=== PATIENT | female | born 1985 | race Caucasian/White ===

== ENCOUNTER 2016-12-17 14:59 | Inpatient (IN) | payer MEDICAID ==
[~2016-12-17] VITALS: Ht 147.3 cm; Wt 59.0 kg
[2016-12-17 15:19] VITALS: BP 127/74; PULSE 75; RESP 18
[2016-12-17 15:20] VITALS: Ht 147.3 cm; Wt 59.0 kg
[2016-12-17] MEDS ORDERED: PREN-93 PO (15:22)
[2016-12-17] MEDS ORDERED: FERR325T5 PO (15:33)
[2016-12-17] MEDS ORDERED: CALC600T5 PO (15:33)
[2016-12-17] MEDS ORDERED: LACTATED RINGER'S 1,000 ML IV ONE (16:30)
--- NOTE | 2016-12-17 19:18 | NSTRPT ---
NST Information Datetime Report Generated by CPN: 12/17/2016 19:18 Datetime: 12/17/2016 13:20 NST Information EGA: 37.5 Test Number: 6 Time on Monitor: 12/17/2016 13:46 Time off Monitor: 12/17/2016 14:40 NST Duration (Min): 54 Reason for NST: Diabetes Mellitus Reason for NST Other: A1DM Test and Monitor Explained: Monitor Explained; Test Explained; Verbalized Understanding Pulse: 78 Resp: 18 SBP: 96 DBP: 55 Test Evaluation Contraction Frequency: 3-7, MILD FHR Baseline : 150 Variability: Moderate 6-25bpm Accelerations: 15X15 Decelerations: None FHR Category: Category I NST Results: Reactive Comments: pt to U/S, EBER-14.9 CM, TRANSVERSE, Report given to Dr. Forrest. New orderes received. Pt to Ob-Trg shalom. Explained to Pt plan of care. Pt states understanding. No further questions asked at this time. Follow up NST appoitment given. Electronically Signed By E-Signature: with User ID: [id number], Addendum/Amendment: FHT baseline poorly established. Patient to the hospital for malpresentation an d contractions, will continue monitoring there Datetime: 12/14/2016 13:24 NST Information EGA: 37.2 NST Duration (Min): 29 Datetime: 12/07/2016 14:25 NST Information EGA: 36.2 NST Duration (Min): 36 Datetime: 12/03/2016 13:04 NST Information EGA: 35.5 NST Duration (Min): 46 Datetime: 11/26/2016 09:00 NST Information EGA: 34.5 NST Duration (Min): 36 Datetime: 11/23/2016 14:18 NST Information EGA: 34.2 Datetime: 11/23/2016 14:12 NST Duration (Min): 39
[2016-12-17] MEDS ORDERED: OXYTOCIN 30 UNITS/LR 500 ML IV SCH ×2 (19:30→20:00)
[2016-12-17] MEDS ORDERED: METHYLERGONOVINE 0.2 MG INJ IM PRN (19:30)
[2016-12-17] MEDS ORDERED: CARBOPROST 250 MCG INJ IM PRN (19:30)
[2016-12-17] MEDS ORDERED: MISOPROSTOL 200 MCG TAB PR PRN (19:30)
[2016-12-17] MEDS ORDERED: OXYTOCIN 30 UNITS/LR 500 ML IV PRN ×2 (19:30→20:00)
[2016-12-17] MEDS ORDERED: CLINDAMYCIN 900 MG/D5W (PMX) 50 ML IV SCH (19:30)
[2016-12-17 19:36] LABS: ADD SCAN DIFF NO
[2016-12-17 19:38] LABS: BASOPHILS % 0.1 % (0.0-2.0); HEMATOCRIT 39.5 % (37.0-47.0); HEMOGLOBIN 13.6 g/dl (12.0-16.0); LYMPHOCYTES # 1.4 10^3/ul (0.8-2.9); LYMPHOCYTES % 15.8 % (15.0-51.0); MEAN CORPUSCULAR HGB CONC 34.4 g/dl (32.0-37.0); MEAN CORPUSCULAR VOLUME 95.9 fl (82.0-101.0); MEAN PLATELET VOLUME 11.4 fl (7.4-10.4); MONOCYTE # 0.4 10^3/ul (0.3-0.9); MONOCYTES % 4.8 % (0.0-11.0); NEUTROPHIL # 7.1 10^3/ul (1.6-7.5); NEUTROPHILS % 78.4 % (39.0-77.0); PLATELET COUNT 183 10^3/UL (140-415); RED BLOOD COUNT 4.12 10^6/ul (4.20-5.40); RED CELL DISTRIBUTION WIDTH 13.5 % (11.5-14.5)
--- NOTE | 2016-12-17 19:44 | TRIAGE ---
OB Triage Datetime Report Generated by CPN: 12/17/2016 19:43 Datetime: 12/17/2016 19:32 Stage of : Labor Datetime: 12/17/2016 18:30 Vaginal Exam Dilatation (cms): 0.0 Effacement (%): 0 Station: -3 Exam By: DR. RABIA Datetime: 12/17/2016 16:19 Labor Evaluation Frequency: 2-8 Monitor Mode: External Duration (sec)2399: 50-120 Pattern: Normal: <= 5 Contractions in 10 Minutes Resting Tone [place]: Relaxed Heart Rate FHR Baseline Rate: 150 Monitor Mode: External US Variability: Moderate 6-25 bpm Accelerations: 15X15 Decelerations: None Category: Category I Pain Assessment Pain Presence: None/Denies Datetime: 12/17/2016 15:26 Assessment Type: Admission Assessment Maternal Assessment Level of Consciousness: Fully Conscious DTR's/Clonus: DTRs 2+; No Clonus Headache: Denies Blurred Vision: No Respiratory Effort: Unlabored; Regular Rhythm; Equal Expansion Breath Sounds, Left: Clear and Equal Breath Sounds, Right: Clear and Equal Nausea/Vomiting: Denies RUQ Epigastric Pain: Denies Lower Extremities Edema: None Degree: None Upper Extremities Edema: None Degree: None Facial Edema: None Fall Risk Assessment History of Falling: (0) No Secondary Diagnosis: (0) No Ambulatory Aid: (0) Bedrest/Nurse Assist IV Therapy: (0) No Gait: (0) Normal/Bedrest/Immobile Mental Status: (0) Oriented to Own Ability Fall Score: 0 Fall Risk Score Definition: No Risk: No action required Datetime: 12/17/2016 15:24 Time of Arrival: 12/17/2016 15:00 EGA: 37.5 Arrived By: Ambulatory Arrived From: Other Unit in Hospital Chief Complaint: PT. CAME FROM NST C/O UC'S AND AIDM Movement: Present Contractions: Irregular Rupture of Membranes: Denies Vaginal Bleeding: None Vaginal Discharge: Denies Recent Sexual Intercouse: Denies Abdominal Trauma: Not Applicable Patient Complaints: Contractions Time Provider Notified: 12/17/2016 16:07 Provider Notified: DR CAMARILLO Initial Plan: TOCO/ UC, IV HYDRATION (Annotations: Data stored by N on behalf of user) Datetime: 12/17/2016 15:08 Pain Assessment Pain Presence: None/Denies Datetime: 12/17/2016 15:07 Stage of : OB Triage Pain Assessment Pain Presence: None/Denies
[2016-12-17] MEDS ORDERED: LACTATED RINGER'S 1,000 ML IV SCH ×2 (19:46→19:50)
[2016-12-17 20:01] LABS: INR 0.91; PROTIME 12.3 Sec (12.2-14.2)
[2016-12-17 20:02] LABS: PARTIAL THROMBOPLASTIN TIME 22.1 Sec (25.0-35.0)
[2016-12-17] MEDS ORDERED: morphine SULFATE/PF (10 MG/10 ML) INJ ONE (20:06)
[2016-12-17] MEDS ORDERED: PHENYLephrine (100 MCG/ML) 5ML SYG ONE (20:06)
[2016-12-17] MEDS ORDERED: FENTAnyl 50 MCG/ML VIAL ONE (20:06)
[2016-12-17 20:38] LABS: BARBITURATES Negative (NEGATIVE); BENZODIAZEPINES Negative (NEGATIVE); CANNABINOIDS Negative (NEGATIVE); COCAINE Negative (NEGATIVE); OPIATES Negative (NEGATIVE)
[2016-12-17] MEDS ORDERED: KETAMINE 500 MG INJ ONE (20:50)
[2016-12-17] MEDS ORDERED: GENTAMICIN 80 MG in SOD CHLORIDE 0.9% 100 ML IVPB SCH (21:00)
[2016-12-17] MEDS ORDERED: ONDANSETRON 4 MG INJ ONE (21:04)
[2016-12-17] MEDS ORDERED: MIDAZOLAM 1 MG/ML 2 ML INJ ONE (21:04)
[2016-12-17] MEDS ORDERED: OXYTOCIN 30 UNITS/LR 500 ML IV ONE (21:29)
[2016-12-17] MEDS ORDERED: GENTAMICIN IN NACL, ISO-OSM 50 ML IVPB SCH (21:30)
[2016-12-17] MEDS ORDERED: GENTAMICIN 80 MG/NS (PMX) 50 ML IVPB SCH (21:30)
--- NOTE | 2016-12-17 21:51 | HP ---
Date/Time of Note Date/Time of Note DATE: 12/17/16 TIME: 21:47 OB - History Hx of Present Free Text/Dictation sent by NST ubit for persistent uterune contractions at37.5 weeks with previous C/S X 1 Chief Complaint: uterine contractions Last Menstrual Period: Mar 28, 2016 Estimated Due Date: Jan 02, 2017 : 3 Para: 1 Spontaneous : 1 Care: Good Care Ultrasounds: Normal mid trimester US Obstetrical Complications: Gestational Diabetes Medical Complications: Other (previous C/S X 1 for abnormal presentation ) Past Family/Social History * Past Medical, Surgical, Family and Obstetric Histories reviewed from chart. Blood Type: O+ Rubella: immune RPR/VDRL: Negative GBS Status: Negative HBsAG: Negative OB Admission Exam Vital Signs Vital Signs Vital Signs Date Time Temp Pulse Resp B/P Pulse Ox O2 Delivery O2 Flow Rate FiO2 12/17/16 15:19 97.5 75 18 127/74 Room Air Physical Exam HEENT: WNL Heart: Rhythm Normal Lungs: Clear, Equal Abdomen: WNL Extremities: Normal Reflexes: Normal Cervical Dilatation: None Effacement: 0% Station: Ballotable Membranes: Intact Heart Rate: 130's Accelerations: Accelerations Present Decelerations: No Decelerations Varibility: Moderate Contractions on Admission: < 5 Minutes Apart Date/Time Contractions Began: 12/17/16 1000 AM Frequency of Contractions: q 3-5 Duration: >60 seconds Intensity: Mild Last 72 hours Lab Results CBC & BMP 12/17/16 19:30 OB Assessment/Plan Other Assessment: 37.5weeks gestation previous C/S X 1 labor pains transverse lie Other plan: repeat C/S ETELVINA LECHUGA MD Dec 17, 2016 21:51
--- NOTE | 2016-12-17 21:56 | OPR ---
Operative Report Planned Procedure Procedure date Dec 17, 2016 Procedure(s) repeat C/S Performed by: ETELVINA LECHUGA MD Assisting provider: DAROI YBARRA MD Anesthesiologist: ERNESTO SHAFFER DO Pre-procedure diagnosis 37.5 weeks gestation persistent uterine contractions transverse lie previous C/S X 1 Anesthesia Type: spinal Procedure Description Under satisfactory anaesthesia a Pfannenstiel incision was made two fingerbreadth above and parallel to the symphysis of pubis around the previous scar and previous scar was removed Incision was extended laterally to the border of the Recti muscles on either sides. Incision was carried down with sharp and blunt dissection until fascia was reached. Anterior Recti muscle fascia was incised in mid portion and incision extended laterally to the border of skin incision. Fascia was mobilized from muscle superiorly and Recti muscles were from midline using sharp and blunt dissection. Peritoneum was visualized; Avoiding bowel and bladder it was incised . Incision was extended superiorly and inferiorly. Bladder blade was placed. Posterior peritoneum covering the lower segment of the uterus and lower segment of the uterus were incised.Low transverse uterine incision was made on lower segment of the uterus. Incision extended laterally to the border of Round Lig. on either sides and after versing the vertex toward uterine incision, baby was delivered from OT. position . Amniotic fluid appeared clear. Cord blood was obtained and cord had 3 vessels . previous midline uterine incision noticed. Placenta was delivered spontaneously and appeared intact and complete. Intrauterine cavity was rubbed with a laparotomy sponge. Uterine incision was closed in 2 layers using running stitches of No1 Monocryl. Hemostasis appeared secure. Ovaries and Fallopian tubes were within normal limits. Announcing needle, lap sponge and instrument count to be correct abdomen was closed in layers as follows: Peritoneum and Recti muscles with running stitches of 20 Vicryl. Fascia with running stitch of No 1 PDS. Subcutaneous tissue with running stitches of 20 Chromic and skin was closed using elvira. Patient tolerated the procedure well and was transferred to [facility] in good condition. Post-Procedure Post-procedure diagnosis S/P repeat C/S Findings: Live Baby in back down transverse lie Specimen removed: No Complications: None Pt Condition post procedure: stable Disposition: PACU Physician Certification I, the undersigned physician, hereby certify that I have discussed the procedure described in this consent form with this patient (or the patient's legal desk representative), including: * The risk and benefits of the procedure; * Any adverse reactions that may reasonably be expected to occur; * Any alternative efficacious methods of treatment which may be medically viable ; * The potential problems that may occur during recuperation; * Potential for blood transfusion and associated risks/benefits; and * Any research or economic interest I may have regarding this treatment. I further certify that the patient/legally responsible person was encouraged to ask question and that all questions were answered. ETELVINA LECHUGA MD Dec 17, 2016 21:56
[2016-12-17] MEDS ORDERED: HYDROmorphONE 1 MG/ML SYG IV PRN ×2 (22:00)
[2016-12-17] MEDS ORDERED: PROCHLORPERAZINE 10 MG INJ IV PRN (22:00)
[2016-12-17] MEDS ORDERED: ZOLPIDEM 5 MG TAB PO PRN (22:00)
[2016-12-17] MEDS ORDERED: KETOROLAC 30 MG INJ IV PRN (22:00)
[2016-12-17] MEDS ORDERED: NALOXONE (0.4 MG/ML) INJ IV PRN (22:00)
[2016-12-17] MEDS ORDERED: ONDANSETRON 4 MG INJ IV PRN (22:00)
[2016-12-17] MEDS ORDERED: DIPHENHYDRAMINE 50 MG INJ IV PRN (22:00)
[2016-12-17] MEDS: OXYTOCIN 30 UNITS/LR 500 ML IV SCH (22:46)
[2016-12-18] VITALS (8 sets, daily range): BP systolic 100–120; BP diastolic 59–72; PULSE 70–103; RESP 18–21
[2016-12-18] MEDS: OXYTOCIN 30 UNITS/LR 500 ML IV SCH (00:08)
[2016-12-18] MEDS ORDERED: CARBOPROST 250 MCG INJ IM PRN (01:00)
[2016-12-18] MEDS ORDERED: LANOLIN 7 GM TUBE TOP PRN (01:00)
[2016-12-18] MEDS ORDERED: METHYLERGONOVINE 0.2 MG INJ IM PRN (01:00)
[2016-12-18] MEDS ORDERED: MISOPROSTOL 200 MCG TAB PR PRN (01:00)
[2016-12-18] MEDS ORDERED: NA PHOSPHATE/BIPHOS 133 ML ENEMA PR PRN (01:00)
[2016-12-18] MEDS ORDERED: OXYTOCIN 30 UNITS/LR 500 ML IV PRN (01:00)
[2016-12-18] MEDS: GENTAMICIN 80 MG/NS (PMX) 50 ML IVPB SCH ×3 (01:25→17:32)
[2016-12-18] MEDS: CLINDAMYCIN 300 MG CAP PO SCH ×4 (01:37→18:00)
[2016-12-18] MEDS: LACTATED RINGER'S 1,000 ML IV SCH ×3 (04:13→16:39)
[2016-12-18] MEDS: CLINDAMYCIN 900 MG/D5W (PMX) 50 ML IVPB SCH ×3 (05:43→22:36)
[2016-12-18] MEDS: ACCU-CHEK XX SCH ×5 (06:00→21:14)
[2016-12-18 07:56] LABS: ADD SCAN DIFF NO
[2016-12-18 08:01] LABS: BASOPHILS % 0.2 % (0.0-2.0); EOSINOPHILS % 0.1 % (0.0-7.0); HEMATOCRIT 31.8 % (37.0-47.0); HEMOGLOBIN 11.1 g/dl (12.0-16.0); LYMPHOCYTES # 1.5 10^3/ul (0.8-2.9); LYMPHOCYTES % 11.9 % (15.0-51.0); MEAN CORPUSCULAR HEMOGLOBIN 33.2 pg (29.0-33.0); MEAN CORPUSCULAR HGB CONC 34.9 g/dl (32.0-37.0); MEAN CORPUSCULAR VOLUME 95.2 fl (82.0-101.0); MEAN PLATELET VOLUME 11.9 fl (7.4-10.4); MONOCYTE # 0.6 10^3/ul (0.3-0.9); MONOCYTES % 4.4 % (0.0-11.0); NEUTROPHIL # 10.7 10^3/ul (1.6-7.5); NEUTROPHILS % 82.9 % (39.0-77.0); PLATELET COUNT 160 10^3/UL (140-415); RED BLOOD COUNT 3.34 10^6/ul (4.20-5.40); RED CELL DISTRIBUTION WIDTH 13.2 % (11.5-14.5); WHITE BLOOD COUNT 12.9 10^3/ul (4.8-10.8)
[2016-12-18] MEDS ORDERED: BISACODYL 10 MG SUPP PR ONE (09:00)
[2016-12-18] MEDS: SENNA/DOCUSATE NA (8.6MG/50MG) TAB PO SCH ×2 (09:50→21:14)
--- NOTE | 2016-12-18 12:41 | PN ---
Date/Time of Note Date/Time of Note DATE: 12/18/16 TIME: 12:38 Assessment/Plan VTE Prophylaxis VTE Prophylaxis Intervention: ambulation Lines/Catheters IV Catheter Type (from Nrsg): Peripheral IV Assessment/Plan Assessment/Plan POD # 1 S/P C/S will advance diet and ambulate Monitor BS Subjective 24 Hr Interval Summary NO BM passing flatus Constitutional: BM, ambulates, flatus, improved, no complaints, urine output Pain Control: well controlled Exam/Review of Systems Vital Signs Vitals Vital Signs Date Time Temp Pulse Resp B/P Pulse Ox O2 Delivery O2 Flow Rate FiO2 12/18/16 08:26 96 21 12/18/16 08:00 98.4 80 18 110/66 Room Air Intake and Output 12/17/16 12/17/16 12/18/16 15:00 23:00 07:00 Intake Total 1000 ml 1650 ml Output Total 900 ml 1250 ml Balance 100 ml 400 ml Exam Free Text/Dictation abdomen: soft BS + Incision: covered Constitutional: alert, oriented, well developed Psych: nl mood/affect, no complaints Head: atraumatic, normocephalic Eyes: EOMI, icteric, nl conjunctiva, nl lids, nl sclera ENMT: mucosa pink and moist, nl external ears & nose, nl lips & teeth, nl nasal mucosa & septum Neck: non-tender, supple Respiratory: clear to auscultation, normal air movement Cardiovascular: nl pulses, regular rate and rhythm Gastrointestinal: nl liver, spleen, non-tender, soft Drains none Musculoskeletal: nl extremities to inspection, nl gait and stance Extremities: normal pulses Neurological: SEATER GRINDER II-XII intact, nl mental status, nl speech, nl strength Skin: nl turgor, rash or lesions Lymph: nl lymph nodes Results Result Diagram: 12/18/16 0640 12/17/161929 ETELVINA LECHUGA MD Dec 18, 2016 12:40
[2016-12-18] MEDS ORDERED: OXYCODONE/ACETAMINOPHEN (5/325) TAB PO PRN (22:00)
[2016-12-18] MEDS ORDERED: ACETAMINOPHEN/CODEINE #3 TAB PO PRN (22:00)
[2016-12-18] MEDS: IBUPROFEN 800 MG TAB PO SCH (22:00)
[2016-12-18] MEDS ORDERED: BISACODYL 10 MG SUPP PR SCH (23:00)
[2016-12-19] MEDS: LACTATED RINGER'S 1,000 ML IV SCH ×2 (01:23→08:39)
[2016-12-19] MEDS: GENTAMICIN 80 MG/NS (PMX) 50 ML IVPB SCH (01:24)
[2016-12-19] MEDS: IBUPROFEN 800 MG TAB PO SCH ×4 (01:46→21:56)
[2016-12-19 04:00] VITALS: BP 109/61; PULSE 75; RESP 18
[2016-12-19] MEDS: CLINDAMYCIN 900 MG/D5W (PMX) 50 ML IVPB SCH (05:33)
[2016-12-19] MEDS: ACCU-CHEK XX SCH ×3 (07:30→13:50)
[2016-12-19 08:09] LABS: ADD SCAN DIFF NO
[2016-12-19 08:14] LABS: BASOPHILS % 0.2 % (0.0-2.0); HEMATOCRIT 34.7 % (37.0-47.0); HEMOGLOBIN 11.8 g/dl (12.0-16.0); LYMPHOCYTES # 1.3 10^3/ul (0.8-2.9); MEAN CORPUSCULAR HEMOGLOBIN 32.8 pg (29.0-33.0); MEAN CORPUSCULAR VOLUME 96.4 fl (82.0-101.0); MEAN PLATELET VOLUME 11.6 fl (7.4-10.4); MONOCYTE # 0.6 10^3/ul (0.3-0.9); MONOCYTES % 4.6 % (0.0-11.0); NEUTROPHIL # 11.9 10^3/ul (1.6-7.5); NEUTROPHILS % 85.6 % (39.0-77.0); PLATELET COUNT 178 10^3/UL (140-415); RED CELL DISTRIBUTION WIDTH 13.7 % (11.5-14.5); WHITE BLOOD COUNT 13.9 10^3/ul (4.8-10.8)
[2016-12-19 08:15] VITALS: BP 115/75; PULSE 81; RESP 19
[2016-12-19] MEDS: SENNA/DOCUSATE NA (8.6MG/50MG) TAB PO SCH ×2 (09:00→21:56)
[2016-12-19] MEDS: CLINDAMYCIN 300 MG CAP PO SCH ×2 (12:56→18:33)
[2016-12-19 15:41] VITALS: BP 111/73; PULSE 81; RESP 19
--- NOTE | 2016-12-19 16:03 | DS ---
Date/Time of Note Date/Time of Note DATE: 12/19/16 TIME: 16:02 Obstetrical Discharge Record Final Diagnosis Final Diagnosis: Term delivered Other Final Diagnosis S/P repeat C/S Section Section: Repeat Condition on Discharge Physical Assessment Last Vitals: see nurses notes Voiding: Yes Bowel Movement: Yes Breast: Soft, non-tender, Filling Fundus: Firm Abdomen and Incision: soft bs + Episiotomy: NA Calf Tenderness: No Patient Condition: Good ETELVINA LECHUGA MD Dec 19, 2016 16:03
--- NOTE | 2016-12-19 16:05 | DS ---
Date/Time of Note Date/Time of Note home next day DATE: 12/19/16 TIME: 16:03 Discharge Summary Admission/Discharge Info Admit Date/Time Dec 17, 2016 at 19:20 Discharge Date/Time 12/21/2015 Final Diagnosis S/P C/S Patient Condition: Good Procedures repeat C/S Hx of Present Illness 31 y/o female had repeat C/S Hospital Course uncomplicated Home Meds Reported Medications Calcium Carbonate (CALCIUM) 600 Mg Tablet, 500 MG PO, TAB 12/17/16 Ferrous Sulfate (Ferrous Sulfate) 325 Mg Tablet.dr, 325 MG PO 12/17/16 Vit No.124/Iron/FA ( Vitamin Tablet) 1 Each Tablet, 1 EACH PO, TAB 12/17/16 Follow-up Plan 2 days in clinic for staple removal Primary Care Provider Care Physician No Primary Pending Labs Laboratory Tests Test 12/18/16 16:25 12/18/16 21:18 12/19/16 07:16 12/19/16 08:39 Bedside Glucose 80mg/dL (70-220) 94mg/dL (70-220) 75mg/dL (70-220) White Blood Count 13.910^3/ul (4.8-10.8) Red Blood Count 3.6010^6/ul (4.20-5.40) Hemoglobin 11.8g/dl (12.0-16.0) Hematocrit 34.7% (37.0-47.0) Mean Corpuscular Volume 96.4fl (82.0-101.0) Mean Corpuscular Hemoglobin 32.8pg (29.0-33.0) Mean Corpuscular Hemoglobin Concent 34.0g/dl (32.0-37.0) Red Cell Distribution Width 13.7% (11.5-14.5) Platelet Count 40007^3/UL (140-415) Mean Platelet Volume 11.6fl (7.4-10.4) Neutrophils % 85.6% (39.0-77.0) Lymphocytes % 9.0% (15.0-51.0) Monocytes % 4.6% (0.0-11.0) Eosinophils % 0.0% (0.0-7.0) Basophils % 0.2% (0.0-2.0) Nucleated Red Blood Cells % 0.0/100WBC (0.0-0.0) Neutrophils # 11.910^3/ul (1.6-7.5) Lymphocytes # 1.310^3/ul (0.8-2.9) Monocytes # 0.610^3/ul (0.3-0.9) Eosinophils # 0.010^3/ul (0.0-0.5) Basophils # 0.010^3/ul (0.0-0.1) Nucleated Red Blood Cells # 0.010^3/ul (0.0-0.0) Test 12/19/16 12:51 Bedside Glucose 98mg/dL (70-220) ETELVINA LECHUGA MD Dec 19, 2016 16:05
--- NOTE | 2016-12-19 16:11 | PD.PPDC ---
[employer] Discharge Instruction Provider Information Physician Information 31 y/o female had repeat C/S Condition Patient Condition: Good Diet Diet: Special Diet Special Diet: 2000 omar ADA diet Activity/Restrictions Activity: Normal Activity Follow-up Follow-up with Physician: 2, 3, Day/Days (in clinic for staple removal ) ETELVINA LECHUGA MD Dec 19, 2016 16:11
[2016-12-19] MEDS ORDERED: Oxycodone/Acetamin (5/325) PO (16:13)
[2016-12-19] MEDS ORDERED: IBUP800T25 PO (16:13)
[2016-12-19 20:00] VITALS: BP 115/80; PULSE 110; RESP 18
[2016-12-20] MEDS: CLINDAMYCIN 300 MG CAP PO SCH ×3 (00:03→12:00)
[2016-12-20 04:00] VITALS: BP 107/69; RESP 18
[2016-12-20] MEDS: IBUPROFEN 800 MG TAB PO SCH ×2 (06:04→14:14)
[2016-12-20] MEDS: ACCU-CHEK XX SCH ×2 (08:10→10:30)
[2016-12-20 08:39] LABS: ADD SCAN DIFF NO
[2016-12-20] MEDS ORDERED: MEASLES,MUMPS,RUBELLA VACCINE INJ SC* ONE (09:00)
[2016-12-20] MEDS: SENNA/DOCUSATE NA (8.6MG/50MG) TAB PO SCH (09:00)
[2016-12-20] MEDS ORDERED: DIPHTH/TET/ACEL PERTUSS (ADULT) 0.5 ML VIAL IM* ONE (09:00)
[2016-12-20 09:01] LABS: BASOPHILS % 0.2 % (0.0-2.0); HEMATOCRIT 32.6 % (37.0-47.0); LYMPHOCYTES % 13.8 % (15.0-51.0); MEAN CORPUSCULAR HEMOGLOBIN 32.6 pg (29.0-33.0); MEAN CORPUSCULAR HGB CONC 33.7 g/dl (32.0-37.0); MEAN CORPUSCULAR VOLUME 96.7 fl (82.0-101.0); MEAN PLATELET VOLUME 11.4 fl (7.4-10.4); MONOCYTE # 0.8 10^3/ul (0.3-0.9); MONOCYTES % 5.4 % (0.0-11.0); NEUTROPHIL # 11.5 10^3/ul (1.6-7.5); PLATELET COUNT 194 10^3/UL (140-415); RED BLOOD COUNT 3.37 10^6/ul (4.20-5.40); RED CELL DISTRIBUTION WIDTH 13.8 % (11.5-14.5); WHITE BLOOD COUNT 14.4 10^3/ul (4.8-10.8)
[2016-12-20 09:15] VITALS: BP 101/59; PULSE 67; RESP 18
== END 2016-12-20 14:23 | disposition home or self-care (01) | DRG 766 ==
LOC: L-D 14:59 → OBT 14:59 → L-D 15:00 → OBT 19:19 → L-D 19:20 → PP1 12-18 00:38
PROVIDERS: ADMIT Obstetrics & Gynecology; ATTEND Obstetrics & Gynecology
PROC: 10D00Z1 Extraction of Products of Conception, Low, Open Approach (ICD-10-PCS; principal; 2016-12-17 21:00)
DX: O34.211 Maternal care for low transverse scar from previous cesarean delivery (principal); O24.429 Gestational diabetes mellitus in childbirth, unspecified control; Z3A.37 37 weeks gestation of pregnancy; Z37.0 Single live birth
CPT/HCPCS: 80307; 82947; 82962; 85025; 85610; 85730; 86592; 86850; 86900; 86901; 87340; 90715; 94760; 96365; 99464; G0463; J1580; J2250; J2274; J2370; J2405; J2590; J3010; J7120

== ENCOUNTER 2018-02-22 14:30 | Inpatient (IN) | END 2018-02-25 15:10 | disposition home or self-care (01) | DRG 766 ==